=== PATIENT | male | born 1985 | race Caucasian/White ===

== ENCOUNTER 2022-02-28 18:26 | Emergency (ER) | payer BC ==
[2022-02-28 18:44] VITALS: BP 147/90; PULSE 102
[2022-02-28 19:30] LABS: ANION GAP 12.4 mEq/L (7-13)
== END 2022-02-28 20:10 | disposition home or self-care (01) ==
LOC: DL.ED 18:26
DX: B34.9 Viral infection, unspecified (principal); E78.00 Pure hypercholesterolemia, unspecified; K21.9 Gastro-esophageal reflux disease without esophagitis; E66.9 Obesity, unspecified; Z68.28 Body mass index [BMI] 28.0-28.9, adult; Z79.899 Other long term (current) drug therapy; Z20.822 Contact with and (suspected) exposure to COVID-19
CPT/HCPCS: 36415; 71045; 80053; 83605; 84484; 85025; 93005; 99285; U0002

== ENCOUNTER 2023-11-13 17:55 | Emergency (ER) | payer BC ==
[2023-11-13 18:17] VITALS: BP 130/76; PULSE 91
[2023-11-13 18:28] LABS: APPEARANCE,URINE CLEAR (CLEAR); BILIRUBIN,URINE NEGATIVE (NEGATIVE); COLOR,URINE YELLOW (YELLOW); GLUCOSE,URINE NEGATIVE (NEGATIVE); KETONES,URINE TRACE (NEGATIVE); LEUKOCYTE ESTERASE,URINE NEGATIVE (NEGATIVE); NITRITE,URINE NEGATIVE (NEGATIVE); OCCULT BLOOD,URINE NEGATIVE (NEGATIVE); PROTEIN,URINE TRACE (NEGATIVE)
[2023-11-13 18:35] LABS: AMORPHOUS SEDIMENT,URINE RARE /HPF (NOT SEEN); BACTERIA,URINE RARE /HPF (0-FEW/HPF); EPITHELIAL CELLS,URINE RARE /HPF (NOT SEEN); MUCUS,URINE MANY /LPF (NOT SEEN); RBC,URINE 0-5 /HPF (0-5); WBC,URINE 0-5 /HPF (0-5/HPF)
[2023-11-13] MEDS: Ketorolac 30 MG/ML SDV IM ONE (18:54)
[2023-11-13] MEDS: Orphenadrine 60 MG/2 ML Inj IM ONE (18:54)
[2023-11-13] MEDS: Take Home: traMADol 50 MG, 4 Tab Pack PO ONE (19:01)
== END 2023-11-13 19:15 | disposition home or self-care (01) ==
LOC: DL.ED 17:55
DX: S32.020A Wedge compression fracture of second lumbar vertebra, initial encounter for closed fracture (principal); K21.9 Gastro-esophageal reflux disease without esophagitis; E66.9 Obesity, unspecified; Z79.899 Other long term (current) drug therapy; Z68.30 Body mass index [BMI] 30.0-30.9, adult; W17.89XA Other fall from one level to another, initial encounter
CPT/HCPCS: 72100; 81001; 96372; 99284; A9270; J1885; J2360

== ENCOUNTER 2025-02-26 07:55 | Emergency (ER) | payer BC ==
[2025-02-26 08:14] VITALS: BP 130/74; PULSE 105
== END 2025-02-26 08:30 | disposition home or self-care (01) ==
LOC: DL.ED 07:55
DX: L02.01 Cutaneous abscess of face (principal); K21.9 Gastro-esophageal reflux disease without esophagitis; E66.9 Obesity, unspecified; Z79.899 Other long term (current) drug therapy; Z68.31 Body mass index [BMI] 31.0-31.9, adult
CPT/HCPCS: 99283